=== PATIENT | male | born 1955 | race Caucasian/White ===

== ENCOUNTER 2023-01-10 06:34 | Emergency (ER) | payer MEDICARE, SELFPAY ==
[2023-01-10 06:36] VITALS: BMI 25.1
[2023-01-10 06:38] VITALS: BP 212/115; PULSE 61; RESP 22; TEMP 36.2; O2SAT 100; BMI 25.1
[2023-01-10 06:40] VITALS: BP 212/115; PULSE 61; RESP 16; TEMP 36.2; O2SAT 100
--- NOTE | 2023-01-10 06:50 | EKG12_ITS ---
Test Reason : NEURO Blood Pressure : / mmHG Vent. Rate : 059 BPM Atrial Rate : 059 BPM P-R Int : 244 ms QRS Dur : 102 ms QT Int : 442 ms P-R-T Axes : 040 -43 037 degrees QTc Int : 437 ms Sinus bradycardia with 1st degree A-V block Left axis deviation T wave abnormality, consider lateral ischemia Abnormal ECG Confirmed by TERESA LIRA, CARLOS ([id number]), acquisitions editor MARISSA REN ([id number]) on 01/12/2023 9:31:15 AM Referred By: HERIBERTO Confirmed By:CARLOS MOORE MD
--- NOTE | 2023-01-10 06:50 | CT_ITS ---
STUDY: CT BRAIN WITHOUT CONTRAST REASON FOR EXAM: Male, 67 years old. Pain RADIATION DOSAGE (If Supplied By Facility): CTDIvol = ( 44.99 ) mGy, DLP = ( 796.11 ) mGycm TECHNIQUE: Transaxial CT imaging of the brain was performed without administration of intravenous contrast material. Individualized dose optimization techniques were used for this CT. COMPARISON: No relevant priors. FINDINGS: Normal soft tissue structures. Normal calvarium. There is mild cerebral atrophy with widening of the extra-axial spaces and ventricular dilatation. There are areas of decreased attenuation within the white matter tracts of the supratentorial brain, consistent with microvascular disease changes. There are small punctate calcifications of the basal ganglia which are seen in the aging brain as a normal variant. Normal brainstem. Normal cerebellum. There is no intracranial hemorrhage. There are no findings of an acute ischemic infarction. Mucosal thickening of the right maxillary sinus consistent with chronic sinusitis. CT/Brain/Head without Contrast IMPRESSION: Chronic involutional changes of the brain. Electronically Signed: Gino Loera MD at 7:45 EST ,
--- NOTE | 2023-01-10 06:50 | RAD_ITS ---
STUDY: X-RAY CHEST REASON FOR EXAM: Male, 67 years old. Hypertension TECHNIQUE: Single AP portable view of the chest. COMPARISON: None. FINDINGS: The lungs are clear and expanded. There is no demonstrated pleural abnormality. Normal size heart. Normal mediastinum and chaparro. Normal visualized pulmonary arteries. Normal visualized aortic arch and descending thoracic aorta. Normal visualized thoracic spine. Normal visualized ribs, clavicles, and shoulders. There is no demonstrated abnormality of the visualized soft tissue structures of the upper abdomen. RAD/Chest 1 View (Portable) IMPRESSION: Normal x-ray examination of the chest. Electronically Signed: Gino Loera MD at 7:46 EST ,
--- NOTE | 2023-01-10 06:52 | EDS_ITS ---
HPI History of Present Illness Chief Complaint: Neuro S/Sx Informant: patient Onset/Context/Timing Onset: Today Context: Sudden Onset Timing: Continuous Quality: Aching Location: Left orbital area Worsened by: Nothing Relieved by: Nothing Narrative Narrative: Patient presents with sudden onset of a headache that began this morning. Patient states he woke up with a headache. Patient states it is over his left eye. Patient describes it as severe and aching. Patient states nothing makes it better nothing makes it worse. Patient admits to some sweats and subjective fevers. Patient admits to some nausea and vomiting due to the headache. Patient denies any paresthesias or weakness. Patient denies any visual changes. Patient denies any difficulty speaking or difficulty swallowing. Patient denies any difficulty with ambulation. PFSH PFSH Medical History no medical history no medical history Home Medications amlodipine 5 mg tablet (Norvasc) 5 mg PO DAILY #30 tabs 01/10/23 [Rx Last Taken Unknown] Allergy/AdvReac Type Severity Reaction Status Date / Time No Known Allergies Allergy Verified 01/10/23 06:36 Surgical History no surgical history no surgical history Social History Smoking Status: Current every day smoker tobacco type: cigarettes ROS ROS ED Constitutional Constitutional ED: Reports fever(s) and subjective; Denies chills Eyes Eyes: Denies blurry vision or change in vision ENT ENT ED: Denies rhinorrhea or sore throat Cardiovascular Cardiovascular: Denies chest pain or palpitations Respiratory/Chest Respiratory/Chest: Denies cough or dyspnea Gastrointestinal Gastrointestinal: Reports nausea and vomiting Genitourinary Genitourinary ED: Denies dysuria or hematuria Musculoskeletal Musculoskeletal: Denies back pain or neck pain Integumentary Denies abscess or rash Neurologic Neurologic: Reports headache(s); Denies weakness Allergic/Immunologic Allergic/Immunologic ED: Denies mouth swelling or urticaria EXAM Physical Exam Const Vital Signs: 01/10/23 06:38 01/10/23 06:40 Temperature 97.1 F L 97.1 F L Temperature Source Temporal Temporal Pulse Rate 61 61 Respiratory Rate 22 H 16 Blood Pressure 212/115 H 212/115 H Blood Pressure Mean 147 147 Pulse Ox 100 100 Oxygen Delivery Method Room Air Room Air Positive well nourished and well developed General Appearance ED: well developed HEENT Reports moist mucous membranes Negative for tenderness Eyes PERRL and EOMs intact bilaterally Eyes Narrative: There is no tenderness over the temporal artery. Neck supple and no JVD Resp normal respiratory effort and clear to auscultation bilaterally Cardio regular rate, regular rhythm and no murmurs GI normal to inspection, nondistended, normoactive bowel sounds and non-tender Palpation: soft Extremity normal to inspection General Extremety ED: Negative for edema or tenderness General Extremity: Negative for edema Neuro oriented x3, CN's II-XII intact bilaterally and no sensory deficits noted Sensorium / Orientation: alert Motor Exam: strength 5/5 throughout Psych mental status grossly normal Skin no rashes or lesions noted MDM MDM MDM Narrative Medical decision making narrative: Differential diagnosis includes stroke, intracranial bleeding, migraine headache, tumor, increased intracranial pressure, and hypertensive urgency. EKG will be obtained to assess for cardiac dysrhythmia and cardiac ischemia. Chest x-ray will be obtained to assess for congestive heart failure and pneumonia. CBC will be obtained to assess for leukocytosis and anemia. Basic metabolic profile will be obtained to assess for renal function and electrolyte abnormality. PT with INR and PTT will be obtained to assess for coagulopathy. High-sensitivity troponin will be obtained to assess for cardiac ischemia. CT scan of the brain will be obtained to assess for intracranial bleeding and mass. Lab Data Lab results narrative: CBC was reviewed. Hemoglobin was mildly elevated at 17.7. White blood cell count was normal. He was NR and PTT were reviewed and were within normal limits. Basic metabolic profile was reviewed and was within normal limits. High-sensitivity troponin was reviewed and was normal at 6. Labs: Laboratory Results - last 24 hr 01/10/23 01/10/23 01/10/23 06:38 06:38 06:38 WBC 8.9 RBC 5.58 Hgb 17.7 H Hct 53.2 MCV 95.3 H MCH 31.7 MCHC 33.3 RDW Std Deviation 45.1 H RDW Coeff of Ricki 12.7 Plt Count 249 MPV 10.8 Immature Gran % (Auto) 0.800 Neut % (Auto) 72.0 H Lymph % (Auto) 15.2 L [place] % (Auto) 9.7 Eos % (Auto) 1.9 Baso % (Auto) 0.4 Absolute Neuts (auto) 6.4 Absolute Lymphs (auto) 1.35 Nucleated RBC % 0 PT 12.8 INR 1.0 APTT 26.0 Sodium 138 Potassium 3.5 Chloride 103 Carbon Dioxide 29.0 Anion Gap 6 BUN 15 Creatinine 0.97 Estim Creat Clear Calc 76.30 Est GFR (MDRD) Af Amer 99 Est GFR (MDRD) Non-Af 82 BUN/Creatinine Ratio 15.4 Glucose 118 H Calcium 9.4 Troponin I High Sens 6 Radiography Diagnostic Testing: Clinical Impression(s) from Imaging Studies Brain CT 01/10/23 06:50 IMPRESSION: Chronic involutional changes of the brain. Electronically Signed: Gino Loera MD at 7:45 EST Reading Location ID and State: [id number] / [employer] , Service support , Chest X-Ray 01/10/23 06:50 IMPRESSION: Normal x-ray examination of the chest. Electronically Signed: Gino Loera MD at 7:46 EST Reading Location ID and State: [employer] / [employer] , Service support , CT scan of the brain was obtained. There is no acute intracranial abnormality. There are chronic involutional changes noted. This was interpreted by the radiologist and was also independently reviewed by myself. Portable 1 view chest x-ray was obtained. On my independent interpretation, lung mendoza are clear. There is normal cardiac silhouette. Bony thorax is normal. There is no acute process noted. Radiologist also interpreted the x- ray and agrees. EKG Initial EKG: Attestation: I personally reviewed and interpreted this EKG as follows: Interpretation: Sinus Rhythm (59) and Non-Specific ST Changes Comments: EKG was obtained. On my independent interpretation, it showed a sinus bradycardia with a first-degree AV block with a rate of 59. [place] interval was prolonged at 244 ms. QRS interval and QTc intervals were normal. There is left axis deviation at -43. There are no acute ST or T wave changes. Prior EKG tracings: not available for review Prior: No Prior Treatment and Re-Evaluation Narrative: Patient was given a dose of labetalol here. Patient's blood pressure was improved on reevaluation. Patient states his headache is completely resolved. Patient was started on amlodipine. Patient was given referral for primary care physician. Patient was instructed to follow-up in 5 to 7 days. Patient understood and was agreeable with the plan. All questions were answered. Discharge Plan Triage Chief Complaint: Neuro S/Sx ED Provider: Tk Lockhart Dx/Rx/DC Orders Clinical Impression: Headache, Hypertension Instructions: ED Headache Unspecified, ED Hypertension New Begin Treatment Prescriptions: New amlodipine [Norvasc] 5 mg tablet 5 mg PO DAILY Qty: 30 0RF Primary Care Provider: Care Physician,No Primary Referrals: Lisa Morgan MD [Med Staff - Poker Prop Player] - 3-5 Days Care Physician,No Primary [Primary Care Provider] - Disposition Disposition: Home, Self Care
--- NOTE | 2023-01-10 06:56 | NURSING ---
NO OLD EKGS
[2023-01-10 06:58] LABS: Absolute Lymphocyte Count 1.35 X10^3/uL (0.83-4.51); Absolute Neutrophil Count 6.4 X10^3/uL (2.0-7.7); Basophil# 0.04 X10^3/uL; Basophil% 0.4 % (0-1); Eosinophil# 0.17 X10^3/uL; Eosinophils% 1.9 % (0-5); Hematocrit 53.2 % (40-54); Hemoglobin 17.7 g/dL (13.0-16.5); Lymphocyte # 1.35 X10^3/ul (0.83-4.51); Lymphocyte % 15.2 % (19-41); Mean Corp Hgb Conc 33.3 g/dL (32-36); Mean Corpuscular Hgb 31.7 pg (27.0-32.0); Mean Corpuscular Volume 95.3 fL (80-94); Mean Platelet Vol. 10.8 fl (6.2-12.0); Monocyte# 0.86 X10^3/uL; Monocyte% 9.7 % (0-10); NRBC Flagged by Analyzer 0 % (0-5); Neutrophil # 6.42 X10^3/uL (2.7-7.7); Platelet Count 249 K/mm3 (150-450); RBC Distribution Width CV 12.7 % (11.6-14.6); RBC Distribution Width SD 45.1 fl (35.1-43.9); Red Blood Count 5.58 M/mm3 (4.6-6.2); White Blood Count 8.9 K/mm3 (4.4-11.0)
[2023-01-10] MEDS: DiphenhydrAMINE 50 MG/ML Syringe 25 MG IV (07:06)
[2023-01-10] MEDS: Metoclopramide 10 MG/2 ML Vial IV (07:06)
[2023-01-10 07:13] LABS: Prothrombin Time (Protime)PT. 12.8 SECONDS (11.7-14.9)
[2023-01-10 07:15] LABS: Anion Gap 6 (5-15); BUN 15 mg/dL (7-18); BUN/Creat Ratio 15.4 RATIO (10-20); Calcium,Total 9.4 mg/dL (8.5-10.1); Chloride 103 mmol/L (98-107); Creatinine, Serum 0.97 mg/dL (0.70-1.30); EST Glomerular Filtration Rate 82 mL/min (>60); Est Glom Filt Rate - Afr Amer 99 mL/min (>60); Glucose 118 mg/dL (74-106); Potassium 3.5 mmol/L (3.5-5.1); Sodium Level 138 mmol/L (136-145); Troponin-I HS (w/2H Reflex) 6 pg/mL (3.0-78.0)
[2023-01-10] MEDS: Labetalol (Prefilled) 20 MG/4 ML IV (07:35)
[2023-01-10 08:24] VITALS: BP 143/78; PULSE 60; RESP 18; O2SAT 94
[2023-01-10 08:55] LABS: Reflex Troponin-HS? (from REC) Y
[2023-01-11 11:10] LABS: Bedside Glucose 125 mg/dL (74-106)
== END 2023-01-10 08:26 | disposition home or self-care (01) ==
PROVIDERS: Emergency Provider Emergency Medicine; Visit Provider Emergency Medicine
DX: R51.9 Headache, unspecified (principal); I10 Essential (primary) hypertension; F17.210 Nicotine dependence, cigarettes, uncomplicated
CPT/HCPCS: 70450; 71045; 80048; 82962; 84484; 85025; 85610; 85730; 93005; 96374; 96375; 99285; A4216

== ENCOUNTER 2023-03-27 23:46 | Emergency (ER) | payer MEDICARE, SELFPAY ==
[2023-03-27 23:46] VITALS: BP 128/73; PULSE 81; RESP 22; TEMP 36.5; O2SAT 90; BMI 26.6
[2023-03-27 23:50] VITALS: BP 128/73; PULSE 76; RESP 18; O2SAT 94
--- NOTE | 2023-03-28 00:38 | EDS_ITS ---
HPI HPI - Fall History of Present Illness Chief Complaint: Fall Detail of Chief Complaint: Tripped on his shoes and fell down about 15 steps. Informant: patient and family Occured/Mechanism Occurred: Today Usually ambulates: Without assistance Pain/Injury Pain Location: head and chest Quality of Pain: Sharp Current Severity: Moderate Maximum Severity: Moderate Associated Symptoms Associated Symptoms: Positive for Loss of consciousness and Amnesia; Negative for Parasthesias, Weakness or Loss of function Length of loss of consciousness: Approximately 1 minute. Narrative Narrative: 67-year-old male history of hypertension. Was walking to his basement tripped on his shoes and fell down about 15 steps. Striking the back of his head causing a laceration. Had about a 1 minute loss of conscious. Also complaining of left rib cage pain. Son is present with the patient. He witnessed the fall and was there. He is helping with the history. Reportedly patient is not on blood thinners. Tetanus Immunization: Unknown Prior similar symptoms: No Recent Illness/Hospitalization: No PFSH PFSH Medical History HTN (hypertension) Home Medications amlodipine 5 mg tablet (Norvasc) 5 mg PO DAILY #30 tabs 01/10/23 [Rx Last Taken Unknown] Allergy/AdvReac Type Severity Reaction Status Date / Time No Known Allergies Allergy Verified 01/10/23 06:36 Social History Smoking Status: Current every day smoker tobacco type: cigarettes ROS ROS ED ROS Narrative No recent illness. Review of Systems ROS Unobtainable: Denies due to encephalopathy Constitutional Constitutional ED: Denies chills or fever(s) Eyes Eyes: Denies blurry vision ENT ENT ED: Denies ear pain Cardiovascular Cardiovascular: Denies chest pain Respiratory/Chest Respiratory/Chest: Denies cough Gastrointestinal Gastrointestinal: Denies abdominal pain Genitourinary Genitourinary ED: Denies dysuria or hematuria Musculoskeletal Musculoskeletal: Denies arthralgias Integumentary Denies abscess Neurologic Neurologic: Denies headache(s) Psychiatric Psychiatric: Denies anxiety Endocrine Endocrinology: Denies polydipsia Hematologic/Lymphatic Hematologic/Lymphatic: Denies easy bleeding or easy bruising Allergic/Immunologic Allergic/Immunologic ED: Denies mouth swelling or tongue swelling EXAM Physical Exam Narrative Exam Narrative: 67-year-old male he is on a back support device and has a c-collar in place along with a head dressing. Vital signs are stable he is afebrile. Son is at bedside. Patient is awake alert and talking. H EENT exam pupils round reactive light. No facial trauma. Dentition intact. I did not take off the head marika ssing yet to evaluate his scalp laceration. C-collar in place. Trachea midline. Lungs clear to auscultation bilaterally. Heart regular rhythm rate about 80 no murmur. Chest wall mild left lower anterior rib cage tenderness. No crepitus or subcu air. Abdomen soft nontender normal bowel sounds no peritoneal signs. Pelvic girdle intact. Moving all 4 extremities both upper and lower extremities. Is skin tears on his right hand. However he can move his shoulders flex and extend his elbows and his wrist. 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 He is able to flex and extend both hips, knees ankles and feet. There is no shortening or rotation. Neurologically is awake and alert. Const Vital Signs: 03/27/23 23:46 03/27/23 23:50 03/27/23 23:50 Temperature 97.7 F L Temperature Source Temporal Pulse Rate 81 76 Respiratory Rate 22 H 18 Respiratory Effort Short of Breath Respiratory Depth Shallow Blood Pressure 128/73 H 128/73 H Blood Pressure Mean 91 91 Pulse Ox 90 94 Oxygen Delivery Method Room Air Nasal Cannula Nasal Cannula Oxygen Flow Rate (L/min) 4 03/28/23 01:46 03/28/23 03:51 Temperature Temperature Source Pulse Rate 73 80 Respiratory Rate 20 H 20 H Respiratory Effort Respiratory Depth Blood Pressure 162/81 H 155/71 H Blood Pressure Mean 108 99 Pulse Ox 93 93 Oxygen Delivery Method Room Air Room Air Oxygen Flow Rate (L/min) Positive well nourished and well developed; Negative for obese, cachectic, contractures or unkempt General Appearance ED: well developed; Negative for unkempt, cachectic, contractures or NAD Nutritional Appearance: Negative for cachectic or obese HEENT Reports normocephalic HEENT Narrative: Posterior scalp laceration. Head dressing in place. trauma, contusion, hematoma and tenderness; Negative for atraumatic Eyes PERRL and EOMs intact bilaterally General Eye ED: Negative for pale conjunctiva or scleral icterus Neck No full ROM, no lymphadenopathy and supple Chest Wall Negative for inspection of chest normal or palpation of chest normal Chest Narrative: Mild tenderness left anterior rib cage. No subcu air or crepitance. Resp normal respiratory effort, no retractions and clear to auscultation bilaterally Effort and Inspection: Negative for pain with movement Auscultation: Negative for rales, rhonchi or wheezes Cardio regular rate, regular rhythm, S1 normal heart sound, S2 normal heart sound and no murmurs Rate: Negative for bradycardia or tachycardic Rhythm: Negative for abnormal rhythm GI non-tender, non-distended and no masses Inspection: Negative for abdominal distention Auscultation: normoactive bowel sounds Palpation: soft Neuro oriented x3, CN's II-XII intact bilaterally, moves all extremities, no focal motor deficits and no sensory deficits noted Niki Coma Scale: document GCS findings Spontaneous Obeys Commands Oriented 15 Sensorium / Orientation: alert, oriented to person, oriented to place and oriented to time; Negative for orientation impaired, confused, lethargic or stuporous Motor Exam: strength 5/5 throughout Psych mental status grossly normal and thought process normal Appearance: Negative for unkempt Attitude: No agitated Mood & Affect: Negative for depressed, anxious or tearful Skin Skin Narrative: Scalp laceration. Skin tears to his right hand and abrasions. Lesions: no lesions Rashes: no rashes Trauma: abrasion and laceration MDM MDM MDM Narrative Medical decision making narrative: 67-year-old male tripped and fell down about 15 steps with LOC, scalp laceration and left anterior rib cage pain. Will be given fentanyl for pain and Zofran. Remain on the back support device and c-collar. Will obtain a CT of his head and C-spine chest and abdomen and pelvis. Screening labs. Eventually will address the scalp laceration when trying to visualize it. His tetanus will be updated Repeat exam patient is a resting vital signs are stable at 1:50 AM. We did roll him on his left side. His C-spine is nontender but he will remain in the c- collar until the CAT scans been officially read by the radiologist. His thoracic and lumbar spine are nontender. He has some very mild tenderness to his left lower lateral ribs but there is no crepitance. No bruise. The right posterior ribs are unremarkable. He will remain in the c-collar and on the back support until we get the official reads. He does have a chin laceration which will need to be repaired and also a scalp laceration which will need to be cleaned to be reevaluated but I suspect that will need to be repaired also. Will be given a second dose of IV fentanyl for pain. Discussed with patient and son the patient's numerous injuries. I will speak to a level 1 trauma center in [place] to see if they will accept him in transfer. History & Record Review Discussion w/independent historian: EMS personnel, Patient and Family Lab Data Attestation: I reviewed the patient's lab results. Lab results narrative: CBC shows no elevated white count 21.3 which may be from the trauma. H&H is 16.1 and 48. Platelets 259. Electrolytes show a gap of 9. BUN and creatinine of 17 and 0.8. Glucose 112. Liver enzymes are unremarkable. I have reviewed all the CAT scans of the head, neck, chest, abdomen pelvis and awaiting formal radiology interpretation. CAT scan of the brain reveals a scalp hematoma. No intracranial bleed. As read by the radiologist. CT C-spine no acute process as read by the radiologist. CT chest reveals left pneumothorax, pulmonary contusion. Left fourth and fifth rib fractures. CT abdomen and pelvis reveals a grade 2 splenic laceration. Labs: Laboratory Results - last 24 hr 03/28/23 03/28/23 03/28/23 00:47 00:47 03:10 WBC 21.3 H RBC 5.10 Hgb 16.1 Hct 48.2 MCV 94.5 H MCH 31.6 MCHC 33.4 RDW Std Deviation 45.4 H RDW Coeff of Ricki 13.0 Plt Count 259 MPV 10.8 Immature Gran % (Auto) 1.200 H Neut % (Auto) 85.5 H Lymph % (Auto) 5.3 L [place] % (Auto) 7.0 Eos % (Auto) 0.6 Baso % (Auto) 0.4 Absolute Neuts (auto) 18.2 H Absolute Lymphs (auto) 1.14 Nucleated RBC % 0 Sodium 137 Potassium 3.6 Chloride 102 Carbon Dioxide 26.0 Anion Gap 9 BUN 17 Creatinine 0.81 Estim Creat Clear Calc 91.38 Est GFR (MDRD) Af Amer 122 Est GFR (MDRD) Non-Af 101 BUN/Creatinine Ratio 21.0 H Glucose 112 H Calcium 9.1 Total Bilirubin 0.50 AST 38 H ALT 51 Alkaline Phosphatase 110 Total Protein 7.7 Albumin 3.9 Globulin 3.8 Albumin/Globulin Ratio 1.0 Ethyl Alcohol 88.0 Radiography Diagnostic Testing: Clinical Impression(s) from Imaging Studies Abdomen/Pelvis CT 03/28/23 01:30 IMPRESSION: 1. Findings suggest grade 2 splenic laceration. 2. Bilateral basilar airspace disease suggests possible sequela of pulmonary contusions and pulmonary hemorrhage. 3. Moderately severe sigmoid colon diverticulosis. Electronically Signed: Jesica Long MD at 2:17 EDT Reading Location ID and State: [id number] / [employer] , Service support , Brain CT 03/28/23 01:[address]: [address] evidence of acute intracranial hemorrhage. 2. Left paramedian parietal scalp contusion and hematoma. Electronically Signed: Jesica Long MD at 2:20 EDT Reading Location ID and State: [email or web address] / [employer] , Service support , Cervical Spine CT 03/28/23 01:[address]: [address] evidence of acute compression or displaced fracture. 2. Multilevel degenerative changes of the cervical spine. Electronically Signed: Jesica Long MD at 2:25 EDT Reading Location ID and State: [id number] / [employer] , Service support , Chest CT 03/28/23 01:30 IMPRESSION: 1. Moderately large left-sided pneumothorax. 2. Bilateral lower lobe airspace disease atelectasis prior presence of a pulmonary hemorrhage and pulmonary contusions. 3. Splenic laceration. 4. Acute left-sided rib fractures. Electronically Signed: Jesica Long MD at 2:31 EDT Reading Location ID and State: [id number] / [employer] , Service support , Procedures Lacerations Chin laceration repair:: Length: 2 in Depth: Sub Q Shape: Linear Prep: Betadine Laceration repair: Irrigated, Lidocaine, Local and Skin sutures Number of Sutures/Hindman: 5 Suture Information: Simple and 5-0 Comment: Submental chin laceration. About 2 inches in length. Area cleaned with iodine. Washed and irrigated with saline. Exam explored. Involve the skin and subcu tissue. No significant bleeding. No bony deformity. No foreign bodies. Locally anesthetized with lidocaine. Closed using 5 simple interrupted 5-0 Ethilon sutures. Proper hemostasis wound closure obtained. Patient tolerated procedure well. Other Procedures Procedure(s): Moderate to large left pneumothorax. Left chest tube placed. Area locally anesthetized with lidocaine with epinephrine. I went lateral to the left chest nipple. Along his left lateral rib cage. Made an incision about 1 inch with a scalpel. Blunt dissected. Entered the chest cavity with a hemostat. Placed a 28 Bengali chest tube to suction. Vapor and a krishnamurthy of air currently entered the chest cavity. Patient tolerated procedure well. He was given another dose of fentanyl. Chest tube was secured. And dressed. Post chest tube placement x-ray showed good placement of the left chest tube going to the left upper lung apex. With reexpansion of pneumothorax. Critical Care Time Critical Care Time: Yes Critical care time (excluding procedures): 30-74 minutes, Including time spent:, Discussing w/Patient &/or Family/Insulation Blanket Maker, Discussing w/Consultants, Arranging Admission or Transfer, Performing Direct Patient Care at Bedside and - (34 min) Discharge Plan Triage Chief Complaint: Fall ED Provider: Danis Anand Dx/Rx/DC Orders Clinical Impression: Fall down steps, Acute head injury with loss of consciousness, Laceration of scalp, Chin laceration, Pneumothorax on left, Contusion of left lung, Spleen la ceration, Left rib fracture Prescriptions: No Action amlodipine [Norvasc] 5 mg tablet 5 mg PO DAILY Qty: 30 0RF Primary Care Provider: Care Physician,No Primary Referrals: Care Physician,No Primary [Primary Care Provider] - Disposition Disposition: [facility]
[2023-03-28] MEDS: Ondansetron 4 MG/2 ML Vial IV (00:51)
[2023-03-28] MEDS: fentaNYL 100 MCG/2 ML Ampul 50 MCG IV ×3 (00:51→03:17)
[2023-03-28 01:10] LABS: Absolute Lymphocyte Count 1.14 X10^3/uL (0.83-4.51); Absolute Neutrophil Count 18.2 X10^3/uL (2.0-7.7); Basophil# 0.09 X10^3/uL; Basophil% 0.4 % (0-1); Eosinophil# 0.12 X10^3/uL; Eosinophils% 0.6 % (0-5); Hematocrit 48.2 % (40-54); Hemoglobin 16.1 g/dL (13.0-16.5); Lymphocyte # 1.14 X10^3/ul (0.83-4.51); Lymphocyte % 5.3 % (19-41); Mean Corp Hgb Conc 33.4 g/dL (32-36); Mean Corpuscular Hgb 31.6 pg (27.0-32.0); Mean Corpuscular Volume 94.5 fL (80-94); Mean Platelet Vol. 10.8 fl (6.2-12.0); NRBC Flagged by Analyzer 0 % (0-5); Neutrophil # 18.22 X10^3/uL (2.7-7.7); Neutrophil % 85.5 % (47-70); Platelet Count 259 K/mm3 (150-450); RBC Distribution Width SD 45.4 fl (35.1-43.9); White Blood Count 21.3 K/mm3 (4.4-11.0)
[2023-03-28 01:17] LABS: AST(SGOT) 38 U/L (15-37); Alanine Aminotransfer ALT/SGPT 51 U/L (16-61); Albumin, Serum 3.9 g/dL (3.2-5.0); Alkaline Phosphatase 110 U/L (45-117); Anion Gap 9 (5-15); BUN 17 mg/dL (7-18); Calcium,Total 9.1 mg/dL (8.5-10.1); Chloride 102 mmol/L (98-107); Creatinine, Serum 0.81 mg/dL (0.70-1.30); EST Glomerular Filtration Rate 101 mL/min (>60); Est Glom Filt Rate - Afr Amer 122 mL/min (>60); Estimated Creatinine Clearance 91.38 ml/min; Globulin 3.8 g/dL (2.2-4.2); Glucose 112 mg/dL (74-106); Potassium 3.6 mmol/L (3.5-5.1); Protein, Total 7.7 g/dL (6.4-8.2); Sodium Level 137 mmol/L (136-145)
--- NOTE | 2023-03-28 01:30 | CT_ITS ---
STUDY: CT BRAIN WITHOUT CONTRAST REASON FOR EXAM: Male, 67 years old patient with closed head injury after unspecified trauma. RADIATION DOSAGE (If Supplied By Facility): CTDIvol = ( 44.99 ) mGy, DLP = ( 863.60 ) mGycm TECHNIQUE: Transaxial CT imaging of the brain was performed without administration of intravenous contrast material. Multiplanar reformations are submitted for interpretation. Individualized dose optimization techniques were used for this CT. COMPARISON: CT of the head dated January 10, 2023. FINDINGS: There is a left paramedian parietal scalp contusion and subgaleal hematoma. Despite associated laceration. Normal calvarium. Normal size ventricles and extra-axial spaces for the patient''s age. Normal white matter tracts of the cerebral hemispheres. There are small punctate calcifications of the basal ganglia which are seen in the aging brain as a normal variant. Normal brainstem. Normal cerebellum. There is no intracranial hemorrhage. There is mild atherosclerotic calcification of the intracranial arteries. There is moderate mucosal thickening within the right maxillary sinus. CT/Brain/Head without Contrast IMPRESSION: 1. No CT evidence of acute intracranial hemorrhage. 2. Left paramedian parietal scalp contusion and hematoma. Electronically Signed: Jesica Long MD at 2:20 EDT ,
--- NOTE | 2023-03-28 01:30 | CT_ITS ---
INDICATION: Trauma. EXAMINATION: CT CHEST WITHOUT CONTRAST - CT Chest W/O Contrast Injection TECHNIQUE: Helically acquired images were obtained of the chest. A radiation dose optimization technique was used for this scan. IV Contrast dosage and agent: None. COMPARISON: None. FINDINGS: LUNGS, PLEURA AND LARGE AIRWAYS: There is bilateral lower lobe airspace consolidation and atelectasis, left greater than right suggesting a sequela of chronic contusions and hemorrhage. No pleural effusion or thickening. There is moderately large left-sided pneumothorax. THYROID: No thyroid lesions. HEART AND PERICARDIUM: Heart size is mildly enlarged. No pericardial effusion. CORONARY ARTERIES: Coronary artery calcification is seen. VESSELS: Thoracic aorta is tortuous with maximum transverse dimension of the ascending thoracic aorta approximately 4.2 cm. There is mild atherosclerotic calcification of the thoracic aorta. MEDIASTINUM AND LADY: No mediastinal or hilar adenopathy. Esophagus is unremarkable. There is a small hiatal hernia. UPPER ABDOMEN: There is a small splenic laceration. BONES: No suspicious lytic or blastic abnormality. There appear to be acute nondisplaced fractures involving the left fourth, and fifth ribs. CT/Chest without Contrast IMPRESSION: 1. Moderately large left-sided pneumothorax. 2. Bilateral lower lobe airspace disease atelectasis prior presence of a pulmonary hemorrhage and pulmonary contusions. 3. Splenic laceration. 4. Acute left-sided rib fractures. Electronically Signed: Jesica Long MD at 2:31 EDT ,
--- NOTE | 2023-03-28 01:30 | CT_ITS ---
STUDY: CT ABDOMEN AND PELVIS WITH CONTRAST REASON FOR EXAM: Male, 67 years old patient with abdominal injury after unspecified trauma. RADIATION DOSAGE (If Supplied By Facility): CTDIvol = ( 19.95 ) mGy, DLP = ( 1330.30 ) mGycm TECHNIQUE: Transaxial images were obtained from the dome of the diaphragm to the symphysis pubis without oral contrast. 100 ml of Isovue 370 was administered. Sagittal and coronal images were reconstructed. Individualized dose optimization techniques were used for this CT. COMPARISON: Prior comparison studies are not available for review at this time. FINDINGS: There is left basilar pneumothorax. There is heterogeneous airspace consolidation and atelectasis within the posterior segments of both lower lobes could be the result of pulmonary hemorrhage. The visualized portions of the heart appears enlarged. Normal liver. Normal gallbladder and extrahepatic biliary system. There appears to be small laceration involving the inferior spleen. There is probably a grade 2 laceration. Normal pancreas. There is symmetric enlargement of the adrenal glands suggesting adrenal hyperplasia. Normal right kidney. Normal left kidney. There is a small hiatal hernia. There is no obvious dilated bowel, ascites or pneumoperitoneum. The small bowel has a grossly normal appearance. There is stool and/or gas visible in the colon with scattered diverticula. There is nonspecific abnormal thickening of the lee of the distal descending colon and sigmoid colon which may be secondary to severe diverticulosis is present. The appendix is visualized and appears normal. There is diffuse atherosclerotic calcification of the abdominal aorta and iliac arteries, without a demonstrated aneurysm. There are portions of the IVC there is slitlike suggesting hypovolemia and/or dehydration. Normal retroperitoneum. Urinary bladder is very distended. There are prostatic calcifications. Normal abdominal wall. There is degenerative disc disease L5-S1 with disc space narrowing and vacuum disc phenomenon. There is thoracic and lumbar vertebral bodies have normal height and alignment. CT/Abdomen/Pelvis W IV Cont ONLY IMPRESSION: 1. Findings suggest grade 2 splenic laceration. 2. Bilateral basilar airspace disease suggests possible sequela of pulmonary contusions and pulmonary hemorrhage. 3. Moderately severe sigmoid colon diverticulosis. Electronically Signed: Jesica Long MD at 2:17 EDT ,
--- NOTE | 2023-03-28 01:30 | CT_ITS ---
STUDY: CT CERVICAL SPINE WITHOUT CONTRAST REASON FOR EXAM: Male, 67 years old patient with neck injury after unspecified trauma. RADIATION DOSAGE (If Supplied By Facility): CTDIvol = ( 21.93 ) mGy, DLP = ( 442.22 ) mGycm TECHNIQUE: High resolution transaxial imaging was performed without contrast material. Sagittal and coronal images were reconstructed. Individualized dose optimization techniques were used for this CT. COMPARISON: Prior comparison studies are not available for review at this time. FINDINGS: Normal craniovertebral junction. There are degenerative changes of the anterior atlantoaxial articulation. Normal odontoid process. Normal cervical lordosis. The cervical vertebral bodies have normal height. There appears be multilevel spondylosis of the cervical spine. C2-3: Normal endplates. Normal disc height and morphology. Normal central canal and intervertebral neuroforamina. C3-4: Normal endplates. Normal disc height and morphology. Normal central canal. There is mild narrowing of bilateral intervertebral neuroforamina with uncovertebral and facet joint hypertrophy. There is a small amount of epidural gas at this level possibly secondary to vacuum disc phenomenon. C4-5: There is a disc bulge and osteophyte complex. There is narrowing of the disc space. There is severe right-sided neural foraminal narrowing and moderate left-sided neural foraminal narrowing with bilateral uncovertebral and facet arthropathy. There is mild central acquired canal stenosis. C5-6: There is narrowing of the disc space with small endplate osteophytes. There is severe right-sided neuroforaminal narrowing and moderate left-sided foraminal narrowing. There is hypertrophic right-sided uncovertebral joint hypertrophy and bilateral facet joint arthropathy. There is no central acquired canal stenosis. C6-7: Normal endplates. Normal disc height and morphology. Normal central canal and intervertebral neuroforamina. C7-T1: Normal endplates. Normal disc height and morphology. Normal central canal and intervertebral neuroforamina. Normal visualized soft tissue structures. CT/Spine Cervical without Contras IMPRESSION: 1. No CT evidence of acute compression or displaced fracture. 2. Multilevel degenerative changes of the cervical spine. Electronically Signed: Jesica Long MD at 2:25 EDT ,
[2023-03-28] MEDS: Diphth,Pertuss(Acell),Tet Vac 0.5 ML Vial IM (01:38)
[2023-03-28 01:46] VITALS: BP 162/81; PULSE 73; RESP 20; O2SAT 93
[2023-03-28] MEDS: Lidocaine 1% /Epi 1:100 (20ml) 20 ML Vial INFILT (02:00)
--- NOTE | 2023-03-28 03:24 | RAD_ITS ---
STUDY: X-RAY CHEST REASON FOR EXAM: Male, 67 years old patient is status post chest tube placement. TECHNIQUE: Single AP portable view of the chest. COMPARISON: CT of the chest dated March 28, 2023. FINDINGS: Left-sided thoracostomy tube is present placed with the tube kinked at the lung apex at the side hole. The lungs are expanded. There is prominence of bronchovascular markings. There is left apical pleural thickening. There is left basilar airspace consolidation and atelectasis. There is no obvious pneumothorax. There is mild cardiac enlargement. Normal mediastinum and chaparro. Normal visualized pulmonary arteries. Normal visualized aortic arch and descending thoracic aorta. Normal visualized thoracic spine. Normal visualized ribs, clavicles, and shoulders. There is no demonstrated abnormality of the visualized soft tissue structures of the upper abdomen. RAD/Chest 1 View (Portable) IMPRESSION: 1. Interim placement of thoracostomy tube which is kinked at the lung apex. 2. No obvious pneumothorax is visible. Electronically Signed: Jesica Long MD at 3:58 EDT ,
[2023-03-28] MEDS: Lidocaine 1% (20 ml mdv) 20 ML Vial INFILT (03:30)
[2023-03-28 03:51] VITALS: BP 155/71; PULSE 80; RESP 20; O2SAT 93
== END 2023-03-28 04:15 | disposition short-term general hospital (02) ==
PROVIDERS: Emergency Provider Emergency Medicine; Visit Provider Emergency Medicine
DX: S06.9XAA Unspecified intracranial injury with loss of consciousness status unknown, initial encounter (principal); S01.01XA Laceration without foreign body of scalp, initial encounter; S01.81XA Laceration without foreign body of other part of head, initial encounter; S27.0XXA Traumatic pneumothorax, initial encounter; S27.321A Contusion of lung, unilateral, initial encounter; S36.039A Unspecified laceration of spleen, initial encounter; S22.42XA Multiple fractures of ribs, left side, initial encounter for closed fracture; F17.210 Nicotine dependence, cigarettes, uncomplicated; W10.9XXA Fall (on) (from) unspecified stairs and steps, initial encounter
CPT/HCPCS: 12011; 70450; 71045; 71250; 72125; 74177; 80053; 82077; 85025; 90715; 96374; 96375; 96376; 99285; Q9967; A4216; J2405

== ENCOUNTER 2023-10-20 14:38 | Emergency (ER) | payer MEDICARE, SELFPAY ==
[2023-10-20 14:39] VITALS: BP 147/90; PULSE 92; RESP 16; TEMP 37.2; O2SAT 100; BMI 24.1
--- NOTE | 2023-10-20 14:47 | EX.ED.GUMALE ---
HPI History of Present Illness Chief Complaint: Complaint Narrative Narrative: 68-year-old male past medical history of hypertension presents with urinary frequency, along with possible urinary retention since yesterday. He states that he recently had a cold which improved. Yesterday, he began having more frequent urination in small amounts. He has urinated at least 4-5 times today in the last 24 hours with burning at the tip of his penis. He denies any fevers or chills, no nausea or vomiting, no flank pain, no hematuria. He also denies any suprapubic discomfort. No past medical history of diabetes. [facility] Medical History HTN (hypertension) Home Medications amlodipine 10 mg tablet 10 mg PO DAILY 10/20/23 [History Last Taken Unknown] lisinopril 10 mg tablet 10 mg PO DAILY 10/20/23 [History Last Taken Unknown] Allergy/AdvReac Type Severity Reaction Status Date / Time No Known Allergies Allergy Verified 10/20/23 14:39 Social History (Updated 10/20/23 @ 15:02 by Lisa Kye) household members: children housing: house current occupational status: retired Smoking Status: Current every day smoker tobacco type: cigarettes ROS ROS ED ROS Narrative Constitutional: No fever, no chills. HEENT: No sore throat. No neck pain. No loss of vision. No rhinorrhea. Cardiovascular: No chest pain. No palpitations. No pedal edema. Respiratory: No cough, no shortness of breath. Abdominal: No abdominal pain. No nausea. No vomiting. Genitourinary: Positive urinary frequency and dysuria. No hematuria. Musculoskeletal: No myalgias. No arthralgias. Neurologic: No headaches. No dizziness. No lightheadedness. Skin: No rash. No change in color. Psychiatric: No depression. No anxiety. EXAM Physical Exam Narrative Exam Narrative: Afebrile. Vital signs noted. HEENT: Normocephalic. Atraumatic. PERRL, EOMI. Neck soft and supple. No point tenderness or step off. Cardiovascular: Regular rate and rhythm. No murmurs, rubs, or gallops appreciated. Respiratory: No tachypnea. Lungs clear to auscultation bilaterally. Gastrointestinal: Abdomen soft, nontender, with normoactive bowel sounds. No rebound or guarding. Neurological: Awake. Alert. Nonfocal, nonlateralizing. Skin: No rash. Normal color. No pallor. Musculoskeletal: No pedal edema. Full range of motion extremities. Const Vital Signs: 10/20/23 14:39 Temperature 99 F Temperature Source Temporal Pulse Rate 92 Respiratory Rate 16 Blood Pressure 147/90 H Blood Pressure Mean 109 Pulse Ox 100 Oxygen Delivery Method Room Air MDM MDM MDM Narrative Medical decision making narrative: Patient with urinary frequency and dysuria may be consistent with UTI. He may have urinary retention secondary to BPH. Does not really have a large amount of urinary retention based on examination, so bladder scan will be performed. If he is able to give a sample, UA will be obtained. Bladder scan is currently unavailable. Given his dysuria, comprehensive work-up will be pursued. He may have an enlarged prostate that is causing urinary frequency. I reviewed his laboratory work and he has normal white count of 5.5, hemoglobin normal at 16.5, hematocrit 49.3, platelet count normal at 193. BMP is grossly unremarkable except for BUN slightly elevated at 23 with a creatinine of 0.88. No renal failure. Sodium is normal at 138 with potassium normal at 3.7. Glucose appropriately elevated at 104 with a normal anion gap of 7. CT of the abdomen and pelvis was obtained and there is no evidence of hydronephrosis, no noted bladder distention or enlarged prostate. Initially, the patient was able to urinate, but did not collect a specimen because he states he could not hold the IV bag. He eventually did urinate again and it was sent for analysis. There is no evidence of infection with 0-5 WBCs and negative nitrites. He may have a few RBCs on microscopic examination. Regardless, with a negative work-up here, I do not feel he is in urinary retention and requiring a Olmedo catheter. I do feel that he may have BPH, and I referred him to urology on-call. He was told he may need a prostate examination and may need to be started on medication, but I do not feel antibiotics are indicated. I also do not feel that he requires observation or admission at this time. Return instructions to the emergency department were reviewed. Disposition is discharged home in stable condition. Patient is agreeable to the plan. History & Record Review Discussion w/independent historian: Patient Additional record(s) reviewed:: Prior ED visit Lab Data Attestation: I reviewed the patient's lab results. Labs: Laboratory Results - last 24 hr 10/20/23 10/20/23 15:18 17:04 WBC 5.5 RBC 5.35 Hgb 16.5 Hct 49.3 MCV 92.1 MCH 30.8 MCHC 33.5 RDW Std Deviation 42.7 RDW Coeff of Ricki 12.6 Plt Count 193 MPV 10.4 Immature Gran % (Auto) 0.200 Neut % (Auto) 66.9 Lymph % (Auto) 18.0 L Major % (Auto) 13.8 H Eos % (Auto) 0.7 Baso % (Auto) 0.4 Absolute Neuts (auto) 3.7 Absolute Lymphs (auto) 0.99 Nucleated RBC % 0 Sodium 138 Potassium 3.7 Chloride 103 Carbon Dioxide 28.0 Anion Gap 7 BUN 23 H Creatinine 0.88 Estim Creat Clear Calc 82.95 Est GFR (MDRD) Af Amer 111 Est GFR (MDRD) Non-Af 92 BUN/Creatinine Ratio 26.3 H Glucose 104 Calcium 8.8 Urine Color Yellow Urine Clarity Clear Urine pH 6.5 Ur Specific [place] 1.015 Urine Protein 30 H Urine Glucose (UA) Normal Urine Ketones 15 H Urine Occult Blood 250 H Urine Nitrite Negative Urine Bilirubin Negative Urine Urobilinogen Normal Ur Leukocyte Esterase 25 H Urine RBC 10-25 SEEN Urine WBC 0-5 SEEN Ur Squamous Epith Cells 0 SEEN Urine Bacteria 0 SEEN Urine Mucus 0 SEEN Radiography Diagnostic Testing: Clinical Impression(s) from Imaging Studies Abdomen/Pelvis CT 10/20/23 15:08 IMPRESSION: No visualized renal ureteral or bladder calculi. No hydronephrosis. Moderate constipation diverticulosis no visualized diverticulitis. Minimal hiatal hernia. No appendicitis. Electronically Signed: Rosalba Harvey MD at 16:19 EST , Discharge Plan Triage Chief Complaint: Complaint ED Provider: Venkat Good Dx/Rx/DC Orders Clinical Impression: Difficulty urinating, Urinary frequency Instructions: ED Dysuria, Uncertain Cause (Adult) Prescriptions: No Action amlodipine 10 mg tablet 10 mg PO DAILY Patient Comments: take 1 tablet by mouth once daily lisinopril 10 mg tablet 10 mg PO DAILY Patient Comments: take 1 tablet by mouth once daily Primary Care Provider: Laura Campbell Referrals: Amadou Flynn MD [Med Staff - Active Staff] - As soon as possible Care Physician,No Primary [Non-Staff] - Activity Restrictions/Additional Instructions: Follow-up with your primary care provider or urology as soon as possible. Disposition Disposition: Home, Self Care
--- NOTE | 2023-10-20 15:08 | CT_ITS ---
STUDY: CT ABDOMEN AND PELVIS WITHOUT CONTRAST REASON FOR EXAM: Male, 68 years old. Kidney Stone RADIATION DOSAGE (If Supplied By Facility): CTDIvol = ( 8.12 ) mGy, DLP = ( 403.88 ) mGycm TECHNIQUE: Transaxial images were obtained from the dome of the diaphragm to the symphysis pubis without oral contrast, and without intravenous contrast. Sagittal and coronal images were reconstructed. Individualized dose optimization techniques were used for this CT. COMPARISON: January 26, 2023 CT scan abdomen and pelvis FINDINGS: The visualized lung bases are unremarkable. The visualized coronary calcifications. Normal liver. Normal gallbladder and extrahepatic biliary system. Normal spleen. Normal pancreas. Normal bilateral adrenal glands. Normal right kidney. Normal left kidney. There are bilateral vascular calcifications within the renal hilum. There is a small hiatal hernia. Normal small intestine. There is moderate stool within the colon. There is diverticulosis without visualized diverticulitis. The appendix is visualized and appears normal. The aorta is partially calcified. There is mild focal distention within the infrarenal aorta that measures 2.3 x 2.3 cm stable since prior study. Normal inferior vena cava. Normal retroperitoneum. Normal urinary bladder. There are prostatic calcifications. Normal abdominal wall. There are diffuse degenerative changes of the visualized lumbar spine. At the level of L5-S1 there is disc space narrowing neural foramina narrowing mild central stenosis. L4-L5 there is mild central stenosis and mild neural foramina narrowing. CT/Abdomen/Pelvis without Cont IMPRESSION: No visualized renal ureteral or bladder calculi. No hydronephrosis. Moderate constipation diverticulosis no visualized diverticulitis. Minimal hiatal hernia. No appendicitis. Electronically Signed: Rosalba Harvey MD at 16:19 EST ,
[2023-10-20] MEDS: 0.9% Normal Saline (1000mL) 1,000 ML 250 ML IV (15:20)
[2023-10-20 15:33] LABS: Absolute Lymphocyte Count 0.99 X10^3/uL (0.83-4.51); Absolute Neutrophil Count 3.7 X10^3/uL (2.0-7.7); Basophil# 0.02 X10^3/uL; Basophil% 0.4 % (0-1); Eosinophil# 0.04 X10^3/uL; Eosinophils% 0.7 % (0-5); Hematocrit 49.3 % (40-54); Hemoglobin 16.5 g/dL (13.0-16.5); Lymphocyte # 0.99 X10^3/ul (0.83-4.51); Mean Corp Hgb Conc 33.5 g/dL (32-36); Mean Corpuscular Hgb 30.8 pg (27.0-32.0); Mean Corpuscular Volume 92.1 fL (80-94); Mean Platelet Vol. 10.4 fl (6.2-12.0); Monocyte# 0.76 X10^3/uL; Monocyte% 13.8 % (0-10); NRBC Flagged by Analyzer 0 % (0-5); Neutrophil # 3.67 X10^3/uL (2.7-7.7); Neutrophil % 66.9 % (47-70); Platelet Count 193 K/mm3 (150-450); RBC Distribution Width CV 12.6 % (11.6-14.6); RBC Distribution Width SD 42.7 fl (35.1-43.9); Red Blood Count 5.35 M/mm3 (4.6-6.2); White Blood Count 5.5 K/mm3 (4.4-11.0)
[2023-10-20 15:41] LABS: Anion Gap 7 (5-15); BUN 23 mg/dL (7-18); BUN/Creat Ratio 26.3 RATIO (10-20); Calcium,Total 8.8 mg/dL (8.5-10.1); Chloride 103 mmol/L (98-107); Creatinine, Serum 0.88 mg/dL (0.70-1.30); EST Glomerular Filtration Rate 92 mL/min (>60); Est Glom Filt Rate - Afr Amer 111 mL/min (>60); Estimated Creatinine Clearance 82.95 ml/min; Glucose 104 mg/dL (74-106); Potassium 3.7 mmol/L (3.5-5.1); Sodium Level 138 mmol/L (136-145)
[2023-10-20 17:11] LABS: Bacteria 0 SEEN /hpf (None Seen); Mucous, Urine 0 SEEN /hpf (<or=2+); Squamous Epithelial Cells - UA 0 SEEN /hpf (0-5)
[2023-10-20 17:16] LABS: Color, Urine Yellow (Yellow); Glucose, Dipstick Normal (Normal); Ketone-Dipstick 15 mg/dl (Negative); Leukocyte Esterase-Dipstick 25 /ul (Negative); Nitrite-Dipstick Negative (Negative); Occult Blood-Urine 250 /ul (Negative); Protein-Dipstick 30 mg/dl (Negative); Specific Gravity, Urine 1.015 (1.002-1.030); Urine Bilirubin Dipstick Negative (Negative); Urine Clarity Clear (Clear); Urine Urobilinogen Normal (Normal); Urine pH 6.5 (5.0 - 8.0)
[2023-10-20 17:24] LABS: Red Blood Cells-Urine 10-25 SEEN /hpf (0-5); White Blood Cells 0-5 SEEN /hpf (0-5)
[2023-10-20 17:51] VITALS: RESP 14
== END 2023-10-20 17:58 | disposition home or self-care (01) ==
PROVIDERS: Emergency Provider Emergency Medicine; PCP Nurse Practitioner Family; Referring Provider Emergency Medicine; Visit Provider Emergency Medicine
DX: R35.0 Frequency of micturition (principal); I10 Essential (primary) hypertension; F17.210 Nicotine dependence, cigarettes, uncomplicated; Z79.899 Other long term (current) drug therapy
CPT/HCPCS: 74176; 80048; 81001; 85025; 99283; J7030; A4216

== ENCOUNTER → 2023-10-27 | Outpatient (CLI) | payer MEDICARE, SELFPAY ==
[2023-10-27 11:16] LABS: PSA,Total - Annual Screen 1.43 ng/mL (0.00-4.00)
== END | disposition home or self-care (01) ==
LOC: LAB 09:32
PROVIDERS: PCP Nurse Practitioner Family; Referring Provider Nurse Practitioner; Visit Provider Nurse Practitioner
DX: Z12.5 Encounter for screening for malignant neoplasm of prostate (principal)
CPT/HCPCS: 36415; 84153; G0103

== ENCOUNTER 2023-12-29 10:41 | Emergency (ER) | payer MEDICARE, SELFPAY ==
[2023-12-29 10:42] VITALS: BP 147/97; PULSE 93; RESP 18; TEMP 36.6; O2SAT 100; BMI 24.8
--- NOTE | 2023-12-29 10:51 | EDS_ITS ---
HPI History of Present Illness Chief Complaint: Upper Extremity Injury Informant: patient Occured/Mechanism Mechanism/Context: Yes fall Narrative Narrative: Patient presents with left upper arm pain after a fall. Patient states he slipped on hardwood floors this morning landing on his left arm which was tucked against his body. He has pain and bruising over the proximal portion of his left arm. He is right-hand dominant. He denies any other injury from the fall. [facility] Medical History HTN (hypertension) Home Medications amlodipine 10 mg tablet 10 mg PO DAILY 10/20/23 [History Last Taken Unknown] lisinopril 10 mg tablet 10 mg PO DAILY 10/20/23 [History Last Taken Unknown] hydrocodone-acetaminophen 5-325mg 5mg-325mg 1 tab PO Q6H PRN PRN Pain 3 days #12 TABLETS 12/29/23 [Rx Last Taken Unknown] Allergy/AdvReac Type Severity Reaction Status Date / Time No Known Allergies Allergy Verified 12/29/23 10:43 Social History household members: children housing: house current occupational status: retired Smoking Status: Current every day smoker tobacco type: cigarettes ROS ROS ED Constitutional Constitutional ED: Denies chills or fever(s) Eyes Eyes: Denies discharge from eye(s) ENT ENT ED: Denies discharge from eye(s), rhinorrhea or sore throat Cardiovascular Cardiovascular: Denies chest pain or palpitations Respiratory/Chest Respiratory/Chest: Denies cough or dyspnea Gastrointestinal Gastrointestinal: Denies abdominal pain, nausea or vomiting Musculoskeletal Musculoskeletal: Reports extremity pain; Denies back pain or neck pain Integumentary Reports other Details: Ecchymosis left arm ; Denies Abrasions or rash Neurologic Neurologic: Denies headache(s) or weakness Psychiatric Psychiatric: Denies anxiety or depression Allergic/Immunologic Allergic/Immunologic ED: Denies lip swelling or urticaria EXAM Physical Exam Const Vital Signs: 12/29/23 10:42 Temperature 97.9 F Temperature Source Temporal Pulse Rate 93 Respiratory Rate 18 Blood Pressure 147/97 H Blood Pressure Mean 113 Pulse Ox 100 Oxygen Delivery Method Room Air Positive well nourished and well developed General Appearance ED: well developed HEENT Reports moist mucous membranes Eyes EOMs intact bilaterally Neck full ROM Neck Narrative: No C-spine tenderness. Chest Wall inspection of chest normal and palpation of chest normal Resp normal respiratory effort and clear to auscultation bilaterally Cardio regular rate and regular rhythm GI non-tender Palpation: soft Back/Spine Back/Spine Narrative: No midline thoracic or lumbar tenderness. Extremity Extremity Narrative: Tenderness to palpation over the proximal third of the left humerus. Anterior ecchymosis noted. Abrasion noted over the olecranon process but no bony tenderness at the elbow. No forearm tenderness. Strong distal pulses and can wiggle fingers without difficulty. No tenderness along the clavicle. Neuro oriented x3 Psych mental status grossly normal MDM MDM MDM Narrative Medical decision making narrative: Patient given Holbrook for pain control. Left humerus x-rays obtained to evaluate for fracture, dislocation. Radiography Diagnostic Testing: Radiology Impression Humerus X-Ray 12/29/23 11:02 IMPRESSION: Impacted nondisplaced comminuted fracture of the proximal humeral metaphysis. Electronically Signed: Jm Dick MD at 11:18 EST Reading Location ID and State: [facility] / [place] , Service support , Treatment and Re-Evaluation Narrative: Left humerus x-ray per my interpretation reveals a proximal humerus fracture. Radiology interpretation reviewed and agrees. He has evidence of an impacted nondisplaced comminuted fracture of the proximal humeral metaphysis. Images reviewed with patient at bedside. Prescription for Holbrook will be sent to the pharmacy. He is placed in a sling and swath. He has not seen orthopedics previously and is referred to Dr. Laws, on-call for no doc. Discharge Plan Triage Chief Complaint: Upper Extremity Injury ED Provider: Jossie Mathews Dx/Rx/DC Orders Clinical Impression: Fracture of proximal humerus Instructions: Understanding a Humerus Fracture Prescriptions: New hydrocodone-acetaminophen 5-325 mg tablet 1 tab PO Q6H PRN PRN (Reason: Pain) 3 Days Qty: 12 0RF No Action amlodipine 10 mg tablet 10 mg PO DAILY Patient Comments: take 1 tablet by mouth once daily lisinopril 10 mg tablet 10 mg PO DAILY Patient Comments: take 1 tablet by mouth once daily Primary Care Provider: Lauar Campbell Referrals: Nino Laws DO [Med Staff - Active Staff] - 3-5 Days Laura Campbell NP-C [Primary Care Provider] - Disposition Disposition: Home, Self Care
[2023-12-29] MEDS: HYDROcodone Bitartrate/Apap 5/325 Tablet PO (10:59)
--- NOTE | 2023-12-29 11:02 | RAD_ITS ---
STUDY: X-RAY - LEFT HUMERUS REASON FOR EXAM: Male, 68 years old. Pain following a fall. TECHNIQUE: 2 view(s) of the humerus. COMPARISON: None. FINDINGS: There is a comminuted impacted fracture of the proximal humeral metaphysis. There is diffuse soft tissue swelling of the arm. RAD/Humerus min 2 Views IMPRESSION: Impacted nondisplaced comminuted fracture of the proximal humeral metaphysis. Electronically Signed: Jm Dick MD at 11:18 EST ,
[2023-12-29] MEDS: Morphine 4 MG/ML Syringe IM (12:30)
[2023-12-29 12:37] VITALS: BP 142/90; PULSE 90; RESP 16; TEMP 36.4; O2SAT 99
== END 2023-12-29 12:40 | disposition home or self-care (01) ==
PROVIDERS: Emergency Provider Emergency Medicine; PCP Nurse Practitioner Family; Visit Provider Emergency Medicine
DX: S42.202A Unspecified fracture of upper end of left humerus, initial encounter for closed fracture (principal); F17.210 Nicotine dependence, cigarettes, uncomplicated; W19.XXXA Unspecified fall, initial encounter
CPT/HCPCS: 73060; 96372; 99282

== ENCOUNTER 2024-11-27 13:52 | Emergency (ER) | payer MEDICARE, SELFPAY ==
[2024-11-27 13:53] VITALS: BP 139/81; PULSE 106; RESP 20; TEMP 35.7; O2SAT 100
--- NOTE | 2024-11-27 14:26 | EDS_ITS ---
HPI History of Present Illness Chief Complaint: Complaint Informant: patient Narrative Narrative: Presents with dysuria and hematuria for last 3 days. He feels discomfort suprapubic. History of BPH. Currently not on any medications for this. He denies any weak stream. He states he does have to push it out at the end feels the burning. No fever chills no back pain. No nausea or vomiting. PFSH [facility] Medical History (Updated 11/27/24 @ 16:[address] Del Jacobs DO) Enlarged prostate HTN (hypertension) Home Medications ?Medication ?Instructions ?Recorded ?Last Taken ?Type amlodipine 10 mg tablet 10 mg PO DAILY 10/20/23 Unknown History lisinopril 10 mg tablet 10 mg PO DAILY 10/20/23 Unknown History cefdinir 300 mg capsule 300 mg PO Q12H #14 caps 11/27/24 Unknown Rx Allergy/AdvReac Type Severity Reaction Status Date / Time No Known Allergies Allergy Verified 11/27/24 13:54 Social History household members: children housing: house current occupational status: retired Smoking Status: Light Smoker (<10/day) ROS ROS ED Constitutional Constitutional ED: Denies chills, fever(s) or sweats ENT ENT ED: Denies sore throat Cardiovascular Cardiovascular: Denies chest pain, leg edema, palpitations or racing heartbeat Respiratory/Chest Respiratory/Chest: Denies cough, dyspnea or dyspnea on exertion Gastrointestinal Gastrointestinal: Reports abdominal pain; Denies diarrhea, nausea or vomiting Genitourinary Genitourinary ED: Reports dysuria and hematuria; Denies urinary frequency Musculoskeletal Musculoskeletal: Denies back pain, extremity pain or neck pain Integumentary Denies rash or wounds Neurologic Neurologic: Denies headache(s), paresthesias or weakness EXAM Physical Exam Const Vital Signs: 11/27/24 13:53 11/27/24 15:53 11/27/24 16:59 Temperature 96.2 F L 98.4 F Temperature Source Temporal Pulse Rate 106 H 80 78 Respiratory Rate 20 H 16 16 Blood Pressure 139/81 H 127/90 H Blood Pressure Mean 100 102 Pulse Ox 100 96 99 Oxygen Delivery Method Room Air Positive well nourished and well developed General Appearance ED: well developed and NAD HEENT Reports moist mucous membranes normocephalic and atraumatic Eyes General Eye ED: Yes normal appearance of both eyes Neck full ROM Chest Wall Chest: Negative for tenderness Resp normal respiratory effort and normal air movement Effort and Inspection: symmetric chest movement; Negative for respiratory distress Cardio regular rate, regular rhythm and no murmurs Peripheral Pulses: pulses 2+ throughout GI normal to inspection, nondistended, normoactive bowel sounds GI Narrative: Mild tenderness suprapubic, no guarding or rebound. No distention palpated. Palpation: Negative for guarding or rebound tenderness present Extremity normal to inspection General Extremety ED: Negative for edema or tenderness General Extremity: Negative for edema Neuro oriented x3 and no sensory deficits noted Sensorium / Orientation: awake and alert Skin no rashes or lesions noted and no wounds MDM MDM MDM Narrative Medical decision making narrative: she denies Interventions / MDM: Differential diagnosis: UTI Diagnosis considered but do not suspect: Urine retention however ultrasound negative. My EKG interpretation: N/A Imaging independently reviewed and interpreted by myself: N/A External documents reviewed: N/A Test considered but not ordered:N/A ED course: Bedside ultrasound performed there is no distention of the bladder is minimal size at this time. Will check labs, urine and urine culture. Labs stable creatinine 0.88. Urine with signs of infection. Urine culture sent. He started on cefdinir. Outpatient follow-up with his doctor. Re-evaluation: stable Disposition discussed with patient/family/significant other: Patient Case discussed with consulting clinician: N/A This note was generated with [employer] dictation software. It may contain incorrect words, spelling, and punctuation that were not noted in checking the note before signing. Lab Data Attestation: I reviewed the patient's lab results. Labs: Laboratory Results - last 24 hr 11/27/24 11/27/24 14:39 15:24 WBC 6.7 RBC 5.19 Hgb 16.2 Hct 47.1 MCV 90.8 MCH 31.2 MCHC 34.4 RDW Std Deviation 42.2 RDW Coeff of Ricki 12.7 Plt Count 223 MPV 10.0 Immature Gran % (Auto) 0.300 Neut % (Auto) 72.1 H Lymph % (Auto) 14.0 L Holt % (Auto) 12.1 H Eos % (Auto) 1.2 Baso % (Auto) 0.3 Absolute Neuts (auto) 4.8 Absolute Lymphs (auto) 0.94 Nucleated RBC % 0 Sodium 135 L Potassium 3.8 Chloride 105 Carbon Dioxide 27.0 Anion Gap 3 L BUN 18 Creatinine 0.88 Est GFR (MDRD) Af Amer 110 Est GFR (MDRD) Non-Af 91 BUN/Creatinine Ratio 20.5 H Glucose 101 Calcium 9.2 Urine Color Yellow Urine Clarity Sl. Cloudy Urine pH 5.0 Ur Specific [place] 1.020 Urine Protein 100 H Urine Glucose (UA) Normal Urine Ketones Negative Urine Occult Blood 250 H Urine Nitrite Negative Urine Bilirubin Negative Urine Urobilinogen Normal Ur Leukocyte Esterase 100 H Urine RBC 25-50 SEEN Urine WBC 10-25 SEEN Ur Squamous Epith Cells 0-5 SEEN Urine Bacteria RARE Urine Mucus 1+ Discharge Plan Triage Chief Complaint: Complaint ED Provider: Del Jacobs Dx/Rx/DC Orders Clinical Impression: Acute UTI, Dysuria Instructions: ED Urinary Tract Infections in Men Prescriptions: New cefdinir 300 mg capsule 300 mg PO Q12H Qty: 14 0RF No Action amlodipine 10 mg tablet 10 mg PO DAILY Patient Comments: take 1 tablet by mouth once daily lisinopril 10 mg tablet 10 mg PO DAILY Patient Comments: take 1 tablet by mouth once daily Primary Care Provider: Laura Campbell Referrals: Laura Campbell, ENVIRONMENTAL [facility]GENCI[facility]IST[facility] [Primary Care Provider] - 1-2 Weeks Activity Restrictions/Additional Instructions: No urine retention seen on ultrasound. Urine with infection. Kidney function normal. White count normal. Take and finish antibiotic as prescribed. Follow- up with your doctor. Print Language: Divehi Disposition Disposition: Home, Self Care Discharge Date/Time: 11/27/24 17:00
[2024-11-27 14:48] LABS: Absolute Lymphocyte Count 0.94 X10^3/uL (0.83-4.51); Absolute Neutrophil Count 4.8 X10^3/uL (2.0-7.7); Basophil# 0.02 X10^3/uL; Basophil% 0.3 % (0-1); Eosinophil# 0.08 X10^3/uL; Eosinophils% 1.2 % (0-5); Hematocrit 47.1 % (40-54); Hemoglobin 16.2 g/dL (13.0-16.5); Lymphocyte # 0.94 X10^3/ul (0.83-4.51); Mean Corp Hgb Conc 34.4 g/dL (32-36); Mean Corpuscular Hgb 31.2 pg (27.0-32.0); Mean Corpuscular Volume 90.8 fL (80-94); Monocyte# 0.81 X10^3/uL; Monocyte% 12.1 % (0-10); NRBC Flagged by Analyzer 0 % (0-5); Neutrophil # 4.84 X10^3/uL (2.7-7.7); Neutrophil % 72.1 % (47-70); Platelet Count 223 K/mm3 (150-450); RBC Distribution Width CV 12.7 % (11.6-14.6); RBC Distribution Width SD 42.2 fl (35.1-43.9); Red Blood Count 5.19 M/mm3 (4.6-6.2); White Blood Count 6.7 K/mm3 (4.4-11.0)
[2024-11-27 15:03] LABS: Anion Gap 3 (5-15); BUN 18 mg/dL (7-18); BUN/Creat Ratio 20.5 RATIO (10-20); Calcium,Total 9.2 mg/dL (8.5-10.1); Chloride 105 mmol/L (98-107); Creatinine, Serum 0.88 mg/dL (0.70-1.30); EST Glomerular Filtration Rate 91 mL/min (>60); Est Glom Filt Rate - Afr Amer 110 mL/min (>60); Glucose 101 mg/dL (74-106); Potassium 3.8 mmol/L (3.5-5.1); Sodium Level 135 mmol/L (136-145)
[2024-11-27 15:50] LABS: Color, Urine Yellow (Yellow); Glucose, Dipstick Normal (Normal); Ketone-Dipstick Negative (Negative); Leukocyte Esterase-Dipstick 100 /ul (Negative); Nitrite-Dipstick Negative (Negative); Occult Blood-Urine 250 /ul (Negative); Protein-Dipstick 100 mg/dl (Negative); Urine Bilirubin Dipstick Negative (Negative); Urine Clarity Sl. Cloudy (Clear); Urine Urobilinogen Normal (Normal)
[2024-11-27 15:53] VITALS: PULSE 80; RESP 16; O2SAT 96
[2024-11-27 16:31] LABS: Bacteria RARE /hpf (None Seen); Mucous, Urine 1+ /hpf (<or=2+); Red Blood Cells-Urine 25-50 SEEN /hpf (0-5); Squamous Epithelial Cells - UA 0-5 SEEN /hpf (0-5); White Blood Cells 10-25 SEEN /hpf (0-5)
[2024-11-27 16:59] VITALS: BP 127/90; PULSE 78; RESP 16; TEMP 36.9; O2SAT 99
[2024-11-27] MEDS: Cefdinir 300 MG Capsule PO (16:59)
== END 2024-11-27 17:00 | disposition home or self-care (01) ==
PROVIDERS: Emergency Provider Emergency Medicine; PCP Nurse Practitioner Family; Visit Provider Emergency Medicine
DX: N39.0 Urinary tract infection, site not specified (principal); I10 Essential (primary) hypertension; N40.0 Benign prostatic hyperplasia without lower urinary tract symptoms; Z79.899 Other long term (current) drug therapy; F17.200 Nicotine dependence, unspecified, uncomplicated
CPT/HCPCS: 80048; 81001; 85025; 87086; 87088; 99283

== ENCOUNTER 2025-05-21 11:44 | Emergency (ER) | payer MEDICARE, SELFPAY ==
[2025-05-21 11:45] VITALS: BP 121/92; PULSE 98; RESP 16; TEMP 36.3; O2SAT 99; BMI 22.6
[2025-05-21 13:01] LABS: Mucous, Urine 0 SEEN /hpf (<or=2+); Squamous Epithelial Cells - UA 0 SEEN /hpf (0-5)
[2025-05-21 13:07] LABS: Color, Urine Yellow (Yellow); Glucose, Dipstick Normal (Normal); Ketone-Dipstick 50 mg/dl (Negative); Leukocyte Esterase-Dipstick 25 /ul (Negative); Nitrite-Dipstick Positive (Negative); Occult Blood-Urine 250 /ul (Negative); Protein-Dipstick 500 mg/dl (Negative); Specific Gravity, Urine 1.025 (1.002-1.030)
[2025-05-21 13:20] VITALS: BP 132/83; PULSE 73; RESP 18; TEMP 36.5; O2SAT 100
[2025-05-21 13:36] LABS: Urine Bilirubin Dipstick 1 mg/dL (Negative)
[2025-05-21 13:37] LABS: Red Blood Cells-Urine > 100 SEEN /hpf (0-5)
[2025-05-21 14:00] VITALS: BP 129/81; PULSE 71; RESP 16; TEMP 36.8; O2SAT 99
[2025-05-21 14:39] LABS: Hematocrit 50.0 % (40-54); Hemoglobin 17.1 g/dL (13.0-16.5); Immature Granulocytes Count 0.040 X10^3/uL (0.0-0.0); Mean Corp Hgb Conc 34.2 g/dL (32-36); Mean Corpuscular Volume 91.9 fL (80-94); Mean Platelet Vol. 10.7 fl (6.2-12.0); NRBC Flagged by Analyzer 0 % (0-5); Platelet Count 235 K/mm3 (150-450); RBC Distribution Width CV 12.8 % (11.6-14.6); RBC Distribution Width SD 42.9 fl (35.1-43.9); Red Blood Count 5.44 M/mm3 (4.6-6.2); White Blood Count 7.8 K/mm3 (4.4-11.0)
[2025-05-21 15:20] LABS: Anion Gap 13 (5-15); BUN 16 mg/dL (4-19); BUN/Creat Ratio 18.3 RATIO (10-20); Calcium,Total 8.6 mg/dL (7.6-11.0); Carbon Dioxide 24.0 mmol/L (21.0-32.0); Chloride 101 mmol/L (98-108); Estimated Creatinine Clearance 83.04 ml/min (50-250); Glucose 82 mg/dL (70-99); Potassium 3.8 mmol/L (3.3-5.1)
[2025-05-21 16:06] VITALS: BP 142/82; PULSE 71; RESP 16; TEMP 36.7; O2SAT 100
== END 2025-05-21 16:07 | disposition home or self-care (01) ==
PROVIDERS: Emergency Provider Surgery; PCP Nurse Practitioner Family; Visit Provider Surgery
DX: N39.0 Urinary tract infection, site not specified (principal); N40.0 Benign prostatic hyperplasia without lower urinary tract symptoms; E86.0 Dehydration; N21.0 Calculus in bladder; K40.90 Unilateral inguinal hernia, without obstruction or gangrene, not specified as recurrent; K57.30 Diverticulosis of large intestine without perforation or abscess without bleeding; I10 Essential (primary) hypertension; F17.200 Nicotine dependence, unspecified, uncomplicated; Z79.899 Other long term (current) drug therapy
CPT/HCPCS: 74176; 80048; 81001; 85025; 87086; 99283; A4216

== ENCOUNTER → 2025-06-05 | Outpatient (CLI) | payer MEDICARE, SELFPAY ==
[2025-06-05 16:40] LABS: PSA,Total - Annual Screen 1.95 ng/mL (0.02-4.00)
== END | disposition home or self-care (01) ==
LOC: LAB 15:04
PROVIDERS: PCP Nurse Practitioner Family; Referring Provider Urology; Visit Provider Urology
DX: Z12.5 Encounter for screening for malignant neoplasm of prostate (principal)
CPT/HCPCS: 36415; 84153; G0103